=== PATIENT | female | born 1960 | race Caucasian/White ===

== ENCOUNTER 2017-11-18 08:09 | Day surgery (SDC) | payer MEDICAID, MEDICARE ==
[~2017-11-18] VITALS: Ht 165.1 cm; Wt 76.1 kg
[2017-11-18] MEDS ORDERED: ONDA4TAB7 PO (08:32)
[2017-11-18] MEDS ORDERED: [UNRECOGNIZED DRUG - CODE] IV (08:32)
[2017-11-18] MEDS ORDERED: VALA10004 PO (08:32)
[2017-11-18] MEDS ORDERED: AMAN100C7 PO (08:32)
[2017-11-18] MEDS ORDERED: METH500T7 PO (08:32)
[2017-11-18 08:43] VITALS: BP 122/65
[2017-11-18] MEDS ORDERED: SODIUM CHLORIDE 0.9% 1,000 ML IV ONE (09:00)
[2017-11-18] MEDS ORDERED: LIDOCAINE 1%, 20ML ONE (09:23)
[2017-11-18] MEDS ORDERED: ROPivacaine/PF 0.2%, 10 ML ONE (09:24)
== END 2017-11-18 14:55 ==
LOC: RAD 08:09
PROVIDERS: ATTEND Internal Medicine
DX: G35 Multiple sclerosis (principal); H53.9 Unspecified visual disturbance; Z87.440 Personal history of urinary (tract) infections; Z87.09 Personal history of other diseases of the respiratory system
CPT/HCPCS: 36415; 62270; 83605; J3490; J7030; J2795